=== PATIENT | male | born 1985 | race Two or more races ===

== ENCOUNTER 2023-04-24 19:15 | Emergency (ER) | payer OTHER ==
[~2023-04-24] VITALS: Ht 172.7 cm; Wt 97.5 kg
[2023-04-24 19:53] VITALS: BP 128/81; TEMP 98.4; O2SAT 98
[2023-04-24] MEDS ORDERED: GUAI100G PO (20:43)
[2023-04-24] MEDS ORDERED: PSEU120T99 PO (20:43)
== END 2023-04-24 20:47 | disposition home or self-care (01) ==
LOC: ER 19:20
DX: J30.9 Allergic rhinitis, unspecified (principal)